=== PATIENT | female | born 1980 | race African-American/Black ===

== ENCOUNTER 2021-03-29 18:39 | Emergency (ER) | payer SELFPAY ==
[2021-03-29 18:49] VITALS: BP 165/85; PULSE 97; RESP 15; TEMP 36.7; O2SAT 100
--- NOTE | 2021-03-29 19:30 | ED.GENADULT ---
HPI - General Adult General Chief complaint: Wound/Laceration Stated complaint: Wasp Sting Time Seen by Provider: 03/29/21 18:56 Source: patient, RN notes reviewed and old records reviewed History of Present Illness HPI narrative: 40-year-old female presents to emergency department concern for being stung by a wasp. 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 She noticed some pain and itchiness behind her left ear about 1 hour ago. She took Benadryl immediately afterwards. States her symptoms have improved since then. No chest pain or shortness of breath. No difficulty breathing. No abdominal pain. No nausea or vomiting. No rash. Review of Systems Review of Systems: Narrative: CONSTITUTIONAL: Denies fever, chills, or sweats. EYES: Denies visual changes, redness, or discharge. ENT: Denies rhinorrhea, congestion, sore throat, or otalgia. CARDIOVASCULAR: Denies chest pain, palpitations, or edema. RESPIRATORY: Denies cough or dyspnea. GASTROINTESTINAL: Denies abdominal pain, nausea, vomiting, or diarrhea. GENITOURINARY: Denies dysuria or hematuria. SKIN: Itching behind left ear MUSCULOSKELETAL: Denies back pain, joint pain, or myalgia. NEUROLOGIC: Denies headache, numbness, dizziness, or weakness. PSYCHIATRIC: Denies anxiety or depression. All systems reviewed & are unremarkable except as noted in HPI and below (ROS) [facility] Social History Social History Gender identity (if verbalized by the patient): Female Exam Narrative: Exam Narrative: GENERAL: Well-appearing, well-nourished, and in no acute distress. HEAD: Normocephalic, atraumatic. EYES: PERRLA and EOMI. ENT: Nares clear, no rhinorrhea or epistaxis. Mucous membranes moist. NECK: Supple. CHEST: Clear to auscultation. No respiratory distress. HEART: Regular rate and rhythm. No murmur heard. Normal peripheral pulses. ABDOMEN: Soft, nontender, nondistended, normal active bowel sounds. EXTREMITIES: Normal range of motion. No edema. SKIN: Warm, dry, no rash. Pinpoint wound behind left ear, concerning for possible sting. Cannot appreciate any swelling erythema around the wound. Do not notice stinger present NEURO: No focal deficits. Alert and oriented x3. PSYCH: Normal mood and affect. Course Vital Signs Vital signs: Vital Signs Temperature 36.7 C 03/29/21 18:49 Pulse Rate 97 03/29/21 18:49 Respiratory Rate 15 03/29/21 18:49 Blood Pressure 165/85 H 03/29/21 18:49 Pulse Oximetry 100 03/29/21 18:49 Temperature 36.7 C 03/29/21 18:49 Pulse Rate 97 03/29/21 18:49 Respiratory Rate 15 03/29/21 18:49 Blood Pressure 165/85 H 03/29/21 18:49 Pulse Oximetry 100 03/29/21 18:49 Medical Decision Making MDM Narrative Medical decision making narrative: Patient shows no signs of anaphylaxis. Will hold on prescribing prednisone. Patient has been experiencing some migraines for the past 3 months. 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 She also had a gas leak in her house a couple of days ago which was fixed. Counseled patient to use Benadryl as needed for itch. Clean area with soap and water twice a day. Medical Records Medical records reviewed: Yes I reviewed the external patient's medical records. Vital Signs Vital Signs: Vital Signs Temperature 36.7 C 03/29/21 18:49 Pulse Rate 97 03/29/21 18:49 Respiratory Rate 15 03/29/21 18:49 Blood Pressure 165/85 H 03/29/21 18:49 Pulse Oximetry 100 03/29/21 18:49 Temperature 36.7 C 03/29/21 18:49 Pulse Rate 97 03/29/21 18:49 Respiratory Rate 15 03/29/21 18:49 Blood Pressure 165/85 H 03/29/21 18:49 Pulse Oximetry 100 03/29/21 18:49 Discharge Plan Discharge Clinical Impression: Accidental insect sting Patient Disposition: Home, Self-Care Condition: Stable Additional Instructions: 1. Use Benadryl
== END 2021-03-29 19:55 | disposition home or self-care (01) ==
PROVIDERS: Emergency Provider Emergency Medicine; PCP Family Medicine
DX: T63.461A Toxic effect of venom of wasps, accidental (unintentional), initial encounter (principal)
CPT/HCPCS: 99283

== ENCOUNTER 2021-05-09 18:05 | Emergency (ER) | payer OTHER, SELFPAY ==
--- NOTE | ~2021-05-09 | XR_ITS ---
EXAMINATION: XR chest 1V portable EXAM DATE: 05/09/2021 18:30 INDICATION: Right-sided posterior chest pain, unable to take deep breath. History hypertension. TECHNIQUE: Portable AP frontal chest x-ray was obtained. There is no prior study for comparison. FINDINGS: The lungs are clear. There are no pleural effusions. The cardiomediastinal silhouette is within normal limits. There is no pneumothorax suspected. The bones and soft tissues are unremarkab le. IMPRESSION: No acute cardiopulmonary findings. Reviewed, dictated and finalized at location A.
[2021-05-09 18:11] VITALS: BP 140/94; PULSE 116; RESP 14; TEMP 36.3; O2SAT 99
--- NOTE | 2021-05-09 18:22 | ECG_ITS ---
Measurements Intervals [place] Rate: 96 P: 47 [place]: 123 QRS: -21 QRSD: 81 T: 30 QT: 259 QTc: 328 Interpretive Statements SINUS RHYTHM DELAYED PRECORDIAL R/S TRANSITION LOW QRS VOLTAGE IN PRECORDIAL LEADS BORDERLINE T WAVE ABNORMALITY- ANT/INF LEADS BASELINE ARTIFACT- I, II, III BORDERLINE ECG Electronically Signed On 05-10-2021 7:51:23 CDT by Poli Arroyo D.O.
--- NOTE | 2021-05-09 18:23 | ED.ARRPALP ---
HPI - Arrhythmia/Palpitations General Chief Complaint: Dizziness Stated Complaint: palpitations, SOB Time Seen by Provider: 05/09/21 18:16 Source: RN notes reviewed History of Present Illness HPI narrative: Patient presents emergency department from home for palpitations. Patient states that for the past month she has had feelings of her heart racing and irregular heartbeat she states that with this it caused her to feel short of breath with nonproductive cough she denies any fevers or chills, chest pain abdominal pain nausea vomiting or any other symptoms. Patient states that she was recently started on hydrochlorothiazide for hypertension denies any other symptoms at this time Review of Systems Review of Systems: Narrative: Gen.: Denies fevers or chills Eyes: Denies eye pain or visual change ENT: Denies congestion Respiratory: Reports shortness of breath and nonproductive cough CV: See HPI GI: Denies abdominal pain nausea, emesis or diarrhea Musculoskeletal: Denies back pain or muscle pain Neuro: Denies numbness, tingling, weakness or focal weakness Skin: Denies rash Except as documented, all other systems reviewed and negative [facility] Past Medical History Medical History (Updated 05/09/21 @ 20:28 by Magdiel Ball DO) Hypertension Social History Social History (Updated 05/09/21 @ 18:24 by Magdiel Ball DO) Smoking status: Never smoker Gender identity (if verbalized by the patient): Female Exam Narrative: Exam Narrative: APPEARANCE: No acute distress, nontoxic, resting in bed EYES: EOMI HEENT: Normocephalic, atraumatic, OMM RESPIRATORY: No respiratory distress Clear to auscultation bilaterally with no rhonchi wheezing or rales. CARDIOVASCULAR: Regular rate and rhythm without murmurs rubs or gallops. ABDOMINAL: Soft, nontender, nondistended, no rebound or guarding MUSCULOSKELETAl: Moves all extremities. No clubbing, cyanosis or edema. NEURO: Awake and alert. Following commands, speech normal, no focal deficits SKIN:: Warm, dry. No rashes lesions or abrasions PSYCHIATRIC: Normal affect/mood, Course Course Emergency Course: Patient with occasional PVC on monitor no other arrhythmias noted throughout stay in ED Discussed with patient results of workup and diagnosis. Discussed need for follow-up with primary care, proper use of medication, and reasons to return to the emergency department. Patient understands and agrees to current treatment plan Vital Signs Vital signs: Vital Signs Temperature 97.3 F L 05/09/21 18:11 Pulse Rate 116 H 05/09/21 18:11 Respiratory Rate 14 05/09/21 18:11 Blood Pressure 140/94 H 05/09/21 18:11 Pulse Oximetry 99 05/09/21 18:11 Temperature 97.3 F L 05/09/21 18:11 Pulse Rate 86 05/09/21 20:21 Respiratory Rate 25 H 05/09/21 20:21 Blood Pressure 127/72 05/09/21 20:21 Pulse Oximetry 99 05/09/21 20:21 MDM - Arrhythmia/Palpitations Lab Data Result diagrams: 05/09/21 18:33 05/09/21 18:33 Labs: Lab Results 05/09/21 05/09/21 05/09/21 Range/Units 18:33 18:33 18:33 WBC 9.5 (4.5-10.0) K/mm3 RBC 4.82 (4.2-5.4) M/mm3 Hgb 15.1 H (12.0-15.0) g/dL Hct 44.9 (37.0-47.0) % MCV 93.2 (80-100) fl MCH 31.3 (26-34) pg MCHC 33.6 (32-36) g/dl RDW 13.6 (11.5-14.5) % Plt Count 368 (150-375) k/mm3 MPV 10.4 (7.4-10.4) fl Immature Gran % (Auto) 0.4 (0-0.5) % Neut % (Auto) 66.2 (45.5-73.1) % Lymph % (Auto) 23.7 (18.3-44.2) % [place] % (Auto) 6.7 (2.6-8.5) % Eos % (Auto) 2.4 (0-4.4) % Baso % (Auto) 0.6 (0.2-1.2) % Lymph # (Auto) 2.26 (0.9-3.2) K/mm3 [place] # (Auto) 0.6 (0.1-0.6) K/mm3 Eos # (Auto) 0.2 (0-0.3) K/mm3 Baso # (Auto) 0.1 (0.0-0.1) K/mm3 Abs Immat Gran (auto) 0.04 H (0.00-0.031) K/mm3 Absolute Neuts (auto) 6.3 (1.3-6.7) K/mm3 Absolute Nucleated RBC 0.0 (0.0-0.012) K/mm3 Nucleated RBC % 0.0 (0.0-0.2) % PT (11.
[2021-05-09 18:42] LABS: Basophils Absolute Auto 0.1 K/mm3 (0.0-0.1); Basophils Percent Auto 0.6 % (0.2-1.2); Eosinophils Absolute Auto 0.2 K/mm3 (0-0.3); Eosinophils Percent Auto 2.4 % (0-4.4); Hematocrit 44.9 % (37.0-47.0); Hemoglobin 15.1 g/dL (12.0-15.0); Immature Granulocyte Absolute 0.04 K/mm3 (0.00-0.031); Immature Granulocyte Percent A 0.4 % (0-0.5); Lymphocytes Absolute Auto 2.26 K/mm3 (0.9-3.2); Lymphocytes Percent Auto 23.7 % (18.3-44.2); Mean Corpuscular HGB Conc 33.6 g/dl (32-36); Mean Corpuscular Hemoglobin 31.3 pg (26-34); Mean Corpuscular Volume 93.2 fl (80-100); Mean Platelet Volume 10.4 fl (7.4-10.4); Monocytes Absolute Auto 0.6 K/mm3 (0.1-0.6); Monocytes Percent Auto 6.7 % (2.6-8.5); Neutrophils Absolute Auto 6.3 K/mm3 (1.3-6.7); Neutrophils Percent Auto 66.2 % (45.5-73.1); Platelet Count Result 368 k/mm3 (150-375); Red Blood Count 4.82 M/mm3 (4.2-5.4); Red Cell Distribution Width 13.6 % (11.5-14.5); White Blood Count 9.5 K/mm3 (4.5-10.0)
[2021-05-09 18:53] LABS: Anion Gap 12 mmol/L (8-16); Blood Urea Nitrogen 14 mg/dL (7-17); Carbon Dioxide 25 mmol/L (22-30); Chloride 102 mmol/L (98-107); Estimated CRCL calculation 60 ml/min; Estimated Glomerular Filt Rate 60; Glucose 111 mg/dL (65-105); Magnesium 1.8 mg/dL (1.6-2.3); Potassium 3.7 mmol/L (3.4-5.0); Sodium 139 mmol/L (137-145)
[2021-05-09 18:59] LABS: INR 0.9; Prothrombin Time 12.9 Seconds (11.1-14.7)
[2021-05-09] MEDS: ASPIRIN 81 MG CHEWABLE TABLET 324 MG PO (19:02)
[2021-05-09 19:03] LABS: Troponin I < 0.012 ng/mL (0.000-0.034)
[2021-05-09] MEDS: SODIUM CHLORIDE 0.9% IV 1,000 ML 999 ML IV CONT (19:03)
[2021-05-09 19:07] LABS: D Dimer 0.27 ug/mL (<0.48)
[2021-05-09 20:16] LABS: Add Urine Microscopic? YES; Appearance Urine Clear (Clear); Bacteria Urine Trace /hpf; Bilirubin Urine Negative (Negative); Blood Urine Negative (Negative); Color Urine Yellow (Yellow); Glucose Urine UA Negative (Negative); Ketones Urine Negative (Negative); Leukocyte Esterase Ur 1+ LEU/UL (Negative); Mucus Urine Rare /lpf; Nitrate Urine Negative (Negative); Protein Urine Negative (Negative); RBC Urine 0-2 /hpf (0-2); Specific Grav Ur 1.025 (1.001-1.035); Squamous Epithelial Cell Urine Few /hpf (Few); WBC Urine 0-3 /hpf
[2021-05-09 20:21] VITALS: BP 127/72; PULSE 86; RESP 25; O2SAT 99
[2021-05-09 21:12] VITALS: BP 117/84; PULSE 68; RESP 18; O2SAT 99
== END 2021-05-09 21:13 | disposition home or self-care (01) ==
PROVIDERS: Emergency Provider Emergency Medicine; PCP Family Medicine
DX: I49.3 Ventricular premature depolarization (principal); R00.2 Palpitations; I10 Essential (primary) hypertension
CPT/HCPCS: 36415; 71045; 80048; 81001; 81025; 83735; 84443; 84484; 85025; 85380; 85610; 85730; 93005; 96360; 99284; A9270; J7030

== ENCOUNTER 2021-07-15 11:08 | Emergency (ER) | payer OTHER, SELFPAY ==
[2021-07-15 11:21] VITALS: BP 130/94; PULSE 88; RESP 16; TEMP 36.6; O2SAT 99
--- NOTE | 2021-07-15 11:33 | ED.EYEPROB ---
HPI - Eye Problem General Chief complaint: Eye Problems Stated complaint: Right Eye Pain Time Seen by Provider: 07/15/21 11:40 Source: patient, RN notes reviewed and old records reviewed Mode of arrival: ambulatory Limitations: no limitations History of Present Illness HPI Narrative: 40 year old female who presents to [facility] care with complaints of swelling with redness to right upper eyelid for the past 2 days.Patient has noted swelling along right upper eyelid with raised area along the lash line. No drainage noted from eye, sclera clear with no conjunctiva redness noted. Patient states that she has been taking some Kimberly DEstella REYES chief complaint: eye pain and eye redness Onset (ago): day(s) Related Data Allergies Allergy/AdvReac Type Severity Reaction Status Date / Time No Known Allergies Allergy Verified 07/15/21 11:10 Review of Systems Review of Systems: CONSTITUTIONAL: Denies fever, chills, or sweats. EYES: Denies visual changes, positive right upper eyelid redness, with raised area along the lash line, no discharge. ENT: Denies rhinorrhea, congestion, sore throat, or otalgia. CARDIOVASCULAR: Denies chest pain, palpitations, or edema. RESPIRATORY: Denies cough or dyspnea. GASTROINTESTINAL: Denies abdominal pain, nausea, vomiting, or diarrhea. GENITOURINARY: Denies dysuria or hematuria. SKIN: Denies rash or itching. MUSCULOSKELETAL: Denies back pain, joint pain, or myalgia. NEUROLOGIC: Denies headache, numbness, or weakness. PSYCHIATRIC: Denies anxiety or depression. All systems reviewed & are unremarkable except as noted in HPI and below PMFSH Past Medical History Medical History (Updated 07/16/21 @ 00:01 by Hilario Raymundo) Hypertension BETTY (obstructive sleep apnea) Surgical History Surgical History (Updated 07/15/21 @ 11:53 by Jen Salinas NP) Previous section Family History Family History (Updated 07/19/21 @ 23:21 by Jen Salinas NP) Mother Hypertension Asthma Ovarian cancer Grandparent Diabetes mellitus Carcinoma of colon Sibling Epilepsy Social History Social History Smoking status: Never smoker Gender identity (if verbalized by the patient): Female Comments At time of signature, agree with nursing past medical, surgical, social and family history. There is no relevant family history pertinent to the presenting complaint Exam Narrative: GENERAL: Well-appearing, well-nourished, and in no acute distress. HEAD: Normocephalic, atraumatic. EYES: PERRLA and EOMI.Swelling of right upper eyelid with raised area along upper lashline, no drainage or any changes in vision, no sharp pain to eye ENT: Nares clear, no rhinorrhea or epistaxis. Mucous membranes moist.TM's normal with good light reflex, throat pink with no lesions or exudates, tonsils enlarged. NECK: Supple.no lymphadenopathy CHEST: Clear to auscultation. No respiratory distress.SAO2 99% on room air HEART: Regular rate and rhythm. No murmur heard. Normal peripheral pulses. ABDOMEN: Soft, nontender, nondistended, normal active bowel sounds. EXTREMITIES: Normal range of motion. No edema. SKIN: Warm, dry, no rash. NEURO: No focal deficits. Alert and oriented x3. Course Vital Signs Vital signs: Vital Signs Temperature 36.6 C 07/15/21 11:21 Pulse Rate 88 07/15/21 11:21 Respiratory Rate 16 07/15/21 11:21 Blood Pressure 130/94 H 07/15/21 11:21 Pulse Oximetry 99 07/15/21 11:21 Temperature 36.6 C 07/15/21 11:21 Pulse Rate 88 07/15/21 11:21 Respiratory Rate 16 07/15/21 11:21 Blood Pressure 130/94 H 07/15/21 11:21 Pulse Oximetry 99 07/15/21 11:21 MDM - Eye Problem Differential Diagnosis Differential diagnosis: Likely corneal abrasion, conjunctivitis, corneal ulcer and other (stye) Medical Records Attestation: I reviewed the patient's medical records. Critical Care Time Critical Care Time Critical Care Time: No Dis
== END 2021-07-15 12:05 | disposition home or self-care (01) ==
PROVIDERS: Emergency Provider Registered Nurse
DX: H00.011 Hordeolum externum right upper eyelid (principal); I10 Essential (primary) hypertension; G47.33 Obstructive sleep apnea (adult) (pediatric)
CPT/HCPCS: 99213; G0463

== ENCOUNTER 2021-09-27 12:28 | Emergency (ER) | payer OTHER, SELFPAY ==
[2021-09-27] VITALS (27 sets, daily range): BP systolic 135–170; BP diastolic 84–113; PULSE 75–109; RESP 12–23; TEMP 37.1–37.3; O2SAT 98–100
--- NOTE | ~2021-09-27 | US_ITS ---
EXAMINATION: US abdomen limited DATE: 09/27/2021 17:32 INDICATION: Epigastric pain TECHNIQUE: Multiple grayscale and Doppler ultrasound images of the abdomen were obtained. COMPARISON: None FINDINGS: The visualized pancreatic body is normal in appearance. Portions of the pancreas including the head a nd tail are obscured. The visualized proximal inferior vena cava is normal. Liver has normal echogeni city and contour, with a smooth surface. No liver lesion identified. No intrahepatic biliary duct dil ation suspected. Portal venous flow was seen in the hepatopetal, normal direction and has normal Dopp ler waveform. The gallbladder is normal in appearance. There is no cholelithiasis. The common bile d uct measures 3 mm, which is normal. Sonographic Oleary sign was reported as negative by the sonograph er.Visualized portion of the right kidney demonstrates normal echogenicity and contour with no hydron ephrosis. IMPRESSION: 1. Normal right upper quadrant ultrasound. Reviewed, dictated and finalized at location A. LE SIDE LASTER
--- NOTE | ~2021-09-27 | XR_ITS ---
EXAMINATION: XR chest 2V EXAM DATE: 09/27/2021 13:04 INDICATION: Chest tightness, elevated blood pressure. TECHNIQUE: Frontal and lateral projections of the chest obtained and reviewed. Comparison is made to prior examination from 05/09/2021. FINDINGS: The lungs are clear. There are no pleural effusions. The cardiomediastinal silhouette is within normal limits. There is no pneumothorax suspected. The bones and soft tissues are unremarkab le. IMPRESSION: Normal chest x-ray exam. Reviewed, dictated and finalized at location B. ING SERVICE DIRECTOR IMPRESSION: Normal chest x-ray exam.
--- NOTE | ~2021-09-27 | CT_ITS ---
EXAMINATION: CTA chest DATE: 09/27/2021 18:15 INDICATION: Chest, back and abdominal pain. TECHNIQUE: Computed tomographic angiography (CTA) of the chest was performed without and with 100 mL Omnipaque-350 intravenous contrast. Volume-rendered 3D-reconstructions of the aorta and large arterie s were constructed by the technologist on a separate workstation. Automated exposure control and iter ative reconstruction technique were employed. The dose-length product was 673.17 mGy-cm. COMPARISON: None. FINDINGS: Minimal atelectasis at the medial right middle lobe. No other airspace opacities, pulmonary edema, pl eural effusion or pneumothorax. Heart size is normal. No pericardial effusion. Thoracic aorta is norm al in caliber with no dissection. Although not performed as a dedicated pulmonary embolism protocol i s relatively good contrast opacification of the pulmonary arteries demonstrating no evident pulmonary embolism. No pathologically enlarged thoracic lymphadenopathy. 1 cm right adrenal nodule which in th e absence of known malignancy this likely represents an adenoma. 5 mm low-attenuation right hepatic l obe cyst. Chronic appearing minimal to mild anterior wedging of a few lower thoracic vertebral bodies . Mild thoracic spondylosis. IMPRESSION: 1. Normal thoracic aorta. No acute cardiopulmonary disease. Reviewed, dictated and finalized at location A. DEVELOPMENT ENGINEER
--- NOTE | 2021-09-27 12:31 | ECG_ITS ---
Measurements Intervals [place] Rate: 90 P: 28 [place]: 140 QRS: -16 QRSD: 76 T: 9 QT: 332 QTc: 408 Interpretive Statements SINUS RHYTHM LOW QRS VOLTAGE IN PRECORDIAL LEADS BORDERLINE R WAVE PROGRESSION, ANTERIOR LEADS BORDERLINE T WAVE ABNORMALITY- ANT/INF LEADS BASELINE WANDER- V4 BORDERLINE ECG Electronically Signed On 09-27-2021 14:10:09 BEHAVIORAL HEALTH CASE MANAGER by Poli Arroyo D.O.
[2021-09-27 13:10] LABS: Basophils Percent Auto 0.4 % (0.2-1.2); Eosinophils Percent Auto 0.5 % (0-4.4); Hematocrit 43.3 % (37.0-47.0); Hemoglobin 15.2 g/dL (12.0-15.0); Immature Granulocyte Absolute 0.03 K/mm3 (0.00-0.031); Immature Granulocyte Percent A 0.4 % (0-0.5); Lymphocytes Absolute Auto 1.35 K/mm3 (0.9-3.2); Lymphocytes Percent Auto 16.8 % (18.3-44.2); Mean Corpuscular HGB Conc 35.1 g/dl (32-36); Mean Corpuscular Hemoglobin 31.6 pg (26-34); Monocytes Absolute Auto 0.5 K/mm3 (0.1-0.6); Monocytes Percent Auto 6.1 % (2.6-8.5); Neutrophils Absolute Auto 6.1 K/mm3 (1.3-6.7); Neutrophils Percent Auto 75.8 % (45.5-73.1); Platelet Count Result 383 k/mm3 (150-375); Red Blood Count 4.81 M/mm3 (4.2-5.4); Red Cell Distribution Width 12.3 % (11.5-14.5); White Blood Count 8.1 K/mm3 (4.5-10.0)
[2021-09-27 13:28] LABS: Alanine Aminotransferase 21 U/L (4-35); Albumin Level 4.8 g/dL (3.5-5.1); Alkaline Phosphatase 100 U/L (38-126); Anion Gap 8 mmol/L (8-16); Aspartate Amino Transferase 25 U/L (14-36); Bilirubin,Total 0.9 mg/dL (0.2-1.3); Blood Urea Nitrogen 8 mg/dL (7-17); Calcium 10.7 mg/dL (8.4-10.2); Carbon Dioxide 27 mmol/L (22-30); Chloride 100 mmol/L (98-107); Estimated CRCL calculation 68 ml/min; Estimated Glomerular Filt Rate > 60; Glucose 118 mg/dL (65-110); Lipase 143 U/L (23-300); Potassium 3.4 mmol/L (3.4-5.0); Sodium 135 mmol/L (137-145)
[2021-09-27 13:40] LABS: Troponin I < 0.012 ng/mL (0.000-0.034)
--- NOTE | 2021-09-27 14:05 | ED.CHESTPAIN ---
HPI - Chest Pain General Chief Complaint: Chest Pain Stated Complaint: ELEVATED BP, ANXIETY CHEST TIGHT Time Seen by Provider: 09/27/21 13:32 Source: patient and RN notes reviewed Mode of arrival: ambulatory Limitations: no limitations History of Present Illness HPI narrative: This is a 40 year old female with history of hypertension who presents for evaluation anxiety and chest tightness. She states yesterday she started having alot of gas in her chest. This made her anxious and she developed left chest tightness. She has been rubbing her chest and her abdomen to help work out the gas in her abdomen and chest . These symptoms started around 11 pm last night while she was watching tv. She denies associated nausea, cough, vomiting, diarrhea, fever or chills. She took gas x, aspirin and hydrochlorothiazide last night for her symptoms. She was prescribed HCTZ 7 months ago but she does not take it daily. She reports it makes her heart race she stopped taking it. Prior to my evaluation she reports she was able to belch and her symptoms have all resolved. She denies abdominal pain or chest pain currently. Related Data Allergies Allergy/AdvReac Type Severity Reaction Status Date / Time No Known Allergies Allergy Verified 09/27/21 13:34 Review of Systems Review of Systems: All systems reviewed & are unremarkable except as noted in HPI and below PMFSH Past Medical History Medical History Hypertension BETTY (obstructive sleep apnea) Surgical History Surgical History Previous section Family History Family History (Updated 07/19/21 @ 23:21 by Jen Salinas NP) Mother Hypertension Asthma Ovarian cancer Grandparent Diabetes mellitus Carcinoma of colon Sibling Epilepsy Social History Social History Smoking status: Never smoker Gender identity (if verbalized by the patient): Female Exam Const: General: no acute distress and alert Orientation/consciousness: patient oriented x3 HENMT: Head: normocephalic and atraumatic Face and sinus: face symmetric Eyes: Pupils: Equal, round and reactive pupils present EOM: EOMs intact bilaterally Chest: Chest palpation & inspection: normal inspection of the chest Resp: Effort & Inspection: normal respiratory effort and no retractions Auscultation: clear to auscultation bilaterally Cardio: Rate: regular rate Rhythm: regular rhythm Heart sounds: no murmurs GI: GI Palp: Yes Soft to palpation, No Tenderness to palpation present (GI) and No Guarding due to palpation present (GI) Auscultation: normal bowel sounds Skin: General skin exam: normal color Rashes: no rashes Neuro: General: patient oriented x3, moves all extremities and CN's II-XI intact bilaterally Extrem: General: normal to inspection Psych: Affect: normal affect Course Reevaluation(s) Reevaluation #1: Patient's pain returned so I performed CT to rule out dissection given that she states she had pain in back . Ct was negative. Troponin has been negative as well. She has heart score of 1 so will discharge. Date: 09/27/21 Time: 18:52 Vital Signs Vital signs: Vital Signs Temperature 98.7 F 09/27/21 12:48 Pulse Rate 99 09/27/21 12:48 Respiratory Rate 18 09/27/21 12:48 Blood Pressure 170/103 H 09/27/21 12:48 Pulse Oximetry 98 09/27/21 12:48 Temperature 98.8 F 09/27/21 19:33 Pulse Rate 81 09/27/21 19:33 Respiratory Rate 16 09/27/21 19:33 Blood Pressure 142/96 H 09/27/21 19:33 Pulse Oximetry 100 09/27/21 19:33 MDM - Chest Pain Lab Data Attestation: I reviewed the patient's lab results. Result diagrams: 09/27/21 12:59 09/27/21 12:59 Labs: Lab Results 09/27/21 09/27/21 09/27/21 Range/Units 12:59 12:59 14:49 WBC 8.1 (4.5-10.0)
[2021-09-27 14:31] LABS: Atypical Lymphocytes Present
[2021-09-27 15:15] LABS: INR 0.9; Prothrombin Time 12.3 Seconds (11.1-14.7)
[2021-09-27 15:16] LABS: Partial Thromboplastin Time 29.6 SECONDS (22.3-36.8)
[2021-09-27] MEDS: BELLADONNA ALK/PHENOB ELIX 10 ML, MAG HYDROX/ALUMINUM HYD/SIMETH 30 ML, LIDOCAINE HCL 2... PO (16:10)
--- NOTE | 2021-09-27 17:01 | ECG_ITS ---
Measurements Intervals [place] Rate: 88 P: 58 [place]: 139 QRS: -10 QRSD: 74 T: 11 QT: 350 QTc: 425 Interpretive Statements SINUS RHYTHM WITH SINUS ARRHYTHMIA INCOMPLETE RIGHT BUNDLE BRANCH BLOCK BORDERLINE T WAVE ABNORMALITY- INFERIOR LEADS BORDERLINE ECG Electronically Signed On 09-27-2021 20:07:54 SENIOR COMPENSATION ANALYST by Poli Arroyo D.O.
[2021-09-27] MEDS: PANTOPRAZOLE SODIUM IV 40 MG VIAL IV PUSH (17:23)
[2021-09-27 17:53] LABS: Troponin I < 0.012 ng/mL (0.000-0.034)
== END 2021-09-27 19:35 | disposition home or self-care (01) ==
PROVIDERS: Emergency Medicine; Emergency Provider General Practice
DX: R07.9 Chest pain, unspecified (principal); K21.9 Gastro-esophageal reflux disease without esophagitis; I10 Essential (primary) hypertension; F41.9 Anxiety disorder, unspecified; I45.10 Unspecified right bundle-branch block; G47.30 Sleep apnea, unspecified
CPT/HCPCS: 36415; 71046; 71275; 76705; 80053; 81025; 83690; 84484; 85025; 85610; 85730; 93005; 96374; 99284; A9270; C9113; Q9967

== ENCOUNTER → 2022-01-19 00:22 | Outpatient (CLI) | payer OTHER, SELFPAY ==
[2022-01-19 13:16] LABS: SARS-CoV-2 RNA PCR Negative
== END ==
PROVIDERS: PCP Registered Nurse; Visit Provider Internal Medicine Critical Care Medicine
DX: R68.89 Other general symptoms and signs (principal); Z20.822 Contact with and (suspected) exposure to COVID-19
CPT/HCPCS: C9803; U0003; U0005

== ENCOUNTER 2022-01-22 08:06 | Outpatient (CLI) | payer OTHER, SELFPAY ==
--- NOTE | 2022-01-29 14:42 | WPDSLEEPSTUD ---
Sleep Study Date of Study: 01/22/22 Ordering Provider: Radha Perez, Interpreting Physician: Yanci Cleary DO Sleep Study Type: CPAP Titration Height: 1.57 m Weight: 91.172 kg Body Mass Index: 36.7 Neck Circumference (inches): 16 [place]: 10 Reason for Sleep Study The patient had a home sleep test on 11/15/2021 through [facility] that showed an AHI of 17.3 with desaturation down to 82%. It was recommended that she have a PAP Titration study. Sleep History The patient is a 41-year-old female with hypertension, GERD, anxiety, neck pain and shoulder pain had a home sleep study ordered by her insurance office manager. The home sleep study showed moderate sleep apnea she was recommended to have a Pap titration study. The patient states that she has loud snoring, choking while sleeping and awakening with her heart racing. The patient occasionally awakens from sleep short of breath. She rarely awakens at night with heartburn, belching or cough. She constantly snores loud enough that others complain. She rarely has trouble sleeping when she has a cold. She frequently wakes up gasping for air throughout the night. She constantly has breathing problems at night observed by herself or others. She rarely sweats excessively at night. She occasionally has heart palpitations or irregular heartbeats during the night. She frequently falls asleep during the day but never while driving. She rarely has trouble at school or work due to sleepiness. She denies sleep paralysis and cataplexy. She rarely experiences vivid dreamlike scenes upon awakening or falling asleep. She rarely has nightmares. She frequently has thoughts racing through her mind. She rarely feels sad or depressed. She frequently has anxiety. She frequently has muscular tension. She occasionally notices parts of her body jerk. She rarely kicks during the night. She denies crawling and aching feelings in her legs as well as leg pain during night. She denies grinding her teeth during sleep awakening with morning jaw pain. She is frequently bothered by pain during the day and occasionally awakened by pain during the night. She rarely wakes up feeling stiff in the morning with sore or achy muscles. She frequently wakes up with pain in the neck, spine or other joints. She goes to bed at 1:00 a.m. on weekdays and 2:00 a.m. on the weekends. She can fall asleep immediately. She wakes up 1-2 times throughout the night to urinate. She can fall back asleep within 10 minutes. She wakes up between 7 and 8:00 a.m. on weekdays and between 6 and 7:00 a.m. on the weekends. She typically gets 4-6 hours of sleep per night. He does not stay in bed after waking up the morning. She currently lives with her 2 children. She does not consume any caffeinated beverages within 2 hours of bedtime. She does not engage in physical exercise before bedtime. She will watch television before falling asleep. She will take naps in the afternoon or the evening and they are refreshing. She does not consume caffeinated beverages throughout the day. She denies tobacco, alcohol and recreational drug use. [facility] Past Medical History Medical History (Updated 01/29/22 @ 15:08 by Yanci Cleary DO) Anxiety GERD (gastroesophageal reflux disease) Heart palpitations Hypertension BETTY (obstructive sleep apnea) Surgical History Surgical History Previous section Family History Family History Mother Hypertension Asthma Ovarian cancer Grandparent Diabetes mellitus Carcinoma of colon Sibling Epilepsy Social History Social History Smoking status: Never smoker Gender identity (if verbalized by the patient): Female Medications Home Medications Medication Instructions Recorded Confirm
[2022-01-29 15:01] VITALS: BMI 36.7
== END 2022-01-23 06:58 | disposition home or self-care (01) ==
PROVIDERS: PCP Registered Nurse; Visit Provider Internal Medicine Cardiovascular Disease
DX: G47.33 Obstructive sleep apnea (adult) (pediatric) (principal)
CPT/HCPCS: 95811

== ENCOUNTER 2022-07-02 20:18 | Emergency (ER) | payer OTHER, SELFPAY ==
--- NOTE | ~2022-07-02 | XR_ITS ---
EXAM: XR ankle LT min 3V DATE: 07/02/2022 20:41 HISTORY: twisted lt ankle x today. pain swelling laterally . COMPARISON: None available. FINDINGS: Normal mineralization. No fracture or dislocation. No lytic or blastic lesion. Joint space s are maintained. Plantar enthesopathy. Small ankle joint effusion. No erosion or periosteal change. Lateral soft tissue swelling. IMPRESSION: No acute osseous finding in the left ankle. Reviewed, dictated and finalized at location K.
[2022-07-02 20:50] VITALS: BP 141/77; PULSE 102; RESP 18; TEMP 36.5; O2SAT 100
--- NOTE | 2022-07-02 21:49 | ED.LOWEXIN ---
HPI - Extremity Injury (Lower) General Chief Complaint: Extremity Injury, Lower Stated Complaint: left ankle pain Time Seen by Provider: 07/02/22 21:48 Source: patient Mode of arrival: wheelchair Limitations: no limitations History of Present Illness HPI Narrative: Patient is a 41-year-old female presenting to the emergency department for evaluation of left ankle pain. Patient reports that she tripped in her yard causing her to bend at the left ankle with immediate pain in the ankle. Patient reports a mild amount of swelling. Pain is aching in nature, worse with movement. Patient denies any significant foot swelling or bruising at this point. Denies numbness or weakness. Patient reports pain with ambulation but has been able to ambulate. Patient denies knee pain or head trauma. She did fall onto her right wrist but denies any abrasion, deformity or pain. Related Data Allergies Allergy/AdvReac Type Severity Reaction Status Date / Time ketorolac [From Toradol] Allergy Dizziness Verified 07/02/22 21:58 Review of Systems Review of Systems: CONSTITUTIONAL: Denies fever CARDIOVASCULAR: Denies chest pain RESPIRATORY: Denies cough or dyspnea. GASTROINTESTINAL: Denies abdominal pain SKIN: Denies rash MUSCULOSKELETAL: Denies back pain, reports left ankle pain NEUROLOGIC: Denies headache PMFSH Past Medical History Medical History Anxiety GERD (gastroesophageal reflux disease) Heart palpitations Hypertension BETTY (obstructive sleep apnea) Surgical History Surgical History Previous section Family History Family History Mother Hypertension Asthma Ovarian cancer Grandparent Diabetes mellitus Carcinoma of colon Sibling Epilepsy Social History Social History Smoking status: Never smoker Gender identity (if verbalized by the patient): Female Exam Narrative: GENERAL: Awake, alert, conversant HEAD: Normocephalic, atraumatic. EYES: PERRLA and EOMI. ENT: Nares clear, no rhinorrhea or epistaxis. Mucous membranes moist. NECK: Supple. CHEST: No respiratory distress, breathing even and non labored HEART: Regular rate, sinus rhythm ABDOMEN:Non distended, non tender EXTREMITIES: Decreased range of motion in the left ankle secondary to pain. There is lateral malleolar tenderness and a mild amount of edema without ecchymosis or induration. DP pulses 2+. Intact distal sensation. No effusion overlying the left knee. No evidence of significant deformity. Right wrist is normal. With radial pulse 2+. No deformity, edema, abrasion or ecchymosis. No medial or lateral tenderness on exam. Intact sensation median, ulnar, radial nerve distribution. SKIN: Warm, dry, no rash. NEURO:No focal deficits. Alert and oriented x3 Course Vital Signs Vital signs: Vital Signs Temperature 36.5 C 07/02/22 20:50 Pulse Rate 102 H 07/02/22 20:50 Respiratory Rate 18 07/02/22 20:50 Blood Pressure 141/77 H 07/02/22 20:50 Pulse Oximetry 100 07/02/22 20:50 Oxygen Delivery Room Air 07/02/22 20:50 Temperature 36.5 C 07/02/22 20:50 Pulse Rate 102 H 07/02/22 20:50 Respiratory Rate 18 07/02/22 20:50 Blood Pressure 141/77 H 07/02/22 20:50 Pulse Oximetry 100 07/02/22 20:50 Oxygen Delivery Room Air 07/02/22 20:50 MDM - Extremity Injury (Lower) MDM Narrative Medical decision making narrative: Patient presenting for evaluation of neck conical fall, left ankle pain. At the time of assessment, ABCs are intact and vital signs are stable. Patient with mild amount of lateral left ankle edema without deformity. Patient is neurovascularly intact. Radiographic imaging shows no evidence of acute fracture or dislocation. This is consistent with ankle sprain. Shared decision-ma
[2022-07-02] MEDS: ACETAMINOPHEN 500 MG TABLET 1000 MG PO (22:23)
[2022-07-02 22:31] VITALS: BP 138/82; PULSE 99; RESP 18; O2SAT 99
== END 2022-07-02 22:33 | disposition home or self-care (01) ==
PROVIDERS: Emergency Provider Emergency Medicine; PCP Registered Nurse
DX: S93.402A Sprain of unspecified ligament of left ankle, initial encounter (principal); S96.912A Strain of unspecified muscle and tendon at ankle and foot level, left foot, initial encounter; I10 Essential (primary) hypertension; K21.9 Gastro-esophageal reflux disease without esophagitis; G47.33 Obstructive sleep apnea (adult) (pediatric); W01.0XXA Fall on same level from slipping, tripping and stumbling without subsequent striking against object, initial encounter
CPT/HCPCS: 73610; 99283; A9270